=== PATIENT | male | born 1955 | race Two or more races ===

== ENCOUNTER → 2020-01-02 | Outpatient (CLI) | payer OTHER ==
--- NOTE | 2020-01-02 13:01 | RAD ---
MR of the left knee HISTORY: Left medial and anterior knee pain for 2 years. No known injury. TECHNIQUE: Routine multiplanar sequences are obtained. FINDINGS: Degenerative tear of the medial meniscus. Degenerative tear of the lateral meniscus. Anterior cruciate ligament is not visualized, compatible with a chronic rupture. Posterior cruciate ligament is mildly thickened and scarred in appearance but intact. Mild PCL buckling. Medial collateral ligament is intact. Iliotibial band unremarkable. Fibular collateral ligament, biceps femoris tendon and popliteus tendon are intact. Extensor mechanism is intact with minimal signal at the distal patellar tendon. Metallic or susceptibility type artifact at the lateral patella may represent a foreign body or prior surgical intervention. Large joint effusion with synovitis. Moderate Aleman's cyst. Severe articular cartilage loss with subchondral bone exposure at the medial and lateral joint compartments with flattening and irregularity of subchondral bone. Subchondral marrow edema and cystic change greatest at the medial compartment. Mild lateral tibial shift relative to the femur. Moderate degenerative change at the patellofemoral joint. No evidence of acute fracture or aggressive bone destruction. Mild soft tissue edema around the knee. IMPRESSION: 1. Medial meniscal tear. 2. Lateral meniscal tear. 3. Chronic anterior cruciate ligament tear. 4. Severe DJD. 5. Large joint effusion with synovitis. 6. Focal susceptibility artifact at the lateral patella as can be seen with prior surgical intervention or metallic foreign body. Electronically signed by: Darinel Valdez MD (01/02/2020 12:58 PM) [id number]
== END | disposition home or self-care (01) ==
LOC: MRI 11:00
PROVIDERS: ATTEND Family Medicine
DX: S83.242A Other tear of medial meniscus, current injury, left knee, initial encounter (principal); S83.282A Other tear of lateral meniscus, current injury, left knee, initial encounter; M25.462 Effusion, left knee; M71.22 Synovial cyst of popliteal space [Baker], left knee; M65.88 Other synovitis and tenosynovitis, other site; M17.12 Unilateral primary osteoarthritis, left knee; M25.362 Other instability, left knee; X58.XXXA Exposure to other specified factors, initial encounter; Y93.89 Activity, other specified; Y92.89 Other specified places as the place of occurrence of the external cause; Y99.8 Other external cause status
CPT/HCPCS: 73721